=== PATIENT | female | born 1970 | race Two or more races ===

== ENCOUNTER 2021-03-02 09:54 | Emergency (ER) | payer SELFPAY ==
[~2021-03-02] VITALS: Ht 162.6 cm; Wt 70.0 kg
[2021-03-02 10:28] LABS: CLARITY,URINE CLOUDY; COLOR,URINE ORANGE; PROTEIN,URINE 100 mg/dL (NEG-TRACE)
[2021-03-02 10:37] LABS: U PREG PATIENT NEGATIVE (NEG)
[2021-03-02] MEDS ORDERED: ACETAMINOPHEN 500 MG TABLET PO ONE (10:45)
[2021-03-02] MEDS ORDERED: ONDANSETRON PF 4 MG/2 ML VIAL. IVP ONE (10:45)
[2021-03-02] MEDS ORDERED: MORPHINE SULFATE 4 MG/ML INJ. IV/SQ PRN (10:45)
[2021-03-02 10:49] LABS: BACTERIA,URINE MODERATE /HPF (0-FEW); WBC,URINE TNTC /HPF (0-4)
[2021-03-02 10:50] LABS: RBC,URINE FIELD OBSCURED /HPF (0-2)
[2021-03-02] MEDS ORDERED: IV NORMAL SALINE 1000ML BAG 1,000 ML IV SCH (11:00)
--- NOTE | 2021-03-02 11:04 | PHYS DOC ---
Past Medical History Past Medical History: UTI Past Surgical History: No Surgical History Smoking Status: Never Smoker Alcohol Use: None General Adult EDM: Chief Complaint: PAIN ON URINATION HPI: HPI: Patient is a 50 year oldfemale patient presented to the ED today complaining of dysuria, flank pain, nausea, symptoms have been going on since Thursday which is 4 days ago. Patient is also complaining of subjective fevers. Patient denies any hematuria. She states she has tried Pyridium with no relief. Patient is also complaining of 7 out of 10 suprapubic abdominal pain intermitt ently since Thursday. Denies anything specifically relieving the pain but states urinating exacerbates the pain Patient is Malaysian-speaking and interpretation is provided by the son Review of Systems: Review of Systems: Constitutional: Denies fever or chills. [] Eyes: Denies change in visual acuity. [] HENT: Denies nasal congestion or sore throat. [] Respiratory: Denies cough or shortness of breath. [] Cardiovascular: Denies chest pain or edema. [] GI: Reports nausea. Reports suprapubic abdominal pain, denies vomiting, bloody stools or diarrhea. [] : Reports dysuria, flank pain Musculoskeletal: Denies back pain or joint pain. [] Integument: Denies rash. [] Neurologic: Denies headache, focal weakness or sensory changes. [] Psychiatric: Denies depression or anxiety. [] Heart Score: C/O Chest Pain: N/A Risk Factors: Risk Factors: DM, Current or recent (<one month) smoker, HTN, HLP, family history of CAD, obesity. Risk Scores: Score 0 - 3: 2.5% MACE over next 6 weeks - Discharge Home Score 4 - 6: 20.3% MACE over next 6 weeks - Admit for Clinical Observation Score 7 - 10: 72.7% MACE over next 6 weeks - Early Invasive Strategies Current Medications: Current Medications Medications (Trade) Dose Ordered Sig/Clemente Start Time Stop Time Status Last Admin Dose Admin Acetaminophen (Tylenol) 1,000 mg 1X ONCE 03/02/21 10:45 03/02/21 10:46 DC 03/02/21 10:55 1,000 MG Morphine Sulfate (Morphine Sulfate) 4 mg PRN Q15MIN PRN 03/02/21 10:45 03/03/21 10:44 03/02/21 10:55 4 MG Ondansetron HCl (Zofran) 4 mg 1X ONCE 03/02/21 10:45 03/02/21 10:46 DC 03/02/21 10:55 4 MG Sodium Chloride 1,000 ml @ 1,650 mls/hr Q37M 03/02/21 11:00 03/02/21 12:00 03/02/21 10:54 1,650 MLS/HR Allergies: Allergies: Allergies Coded Allergies Type Severity Reaction Last Updated Verified No Known Drug Allergies 03/02/21 No Physical Exam: PE: Constitutional: Well developed, well nourished, no acute distress, non-toxic appearance. [] HENT: Normocephalic, atraumatic, bilateral external ears normal, oropharynx moist, no oral exudates, nose normal. [] Eyes: PERRLA, EOMI, conjunctiva normal, no discharge. [] Neck: Normal range of motion, no tenderness, supple, no stridor. [] Cardiovascular:Heart rate regular rhythm, no murmur [] Lungs & Thorax: Bilateral breath sounds clear to auscultation [] Abdomen: Bowel sounds normal, soft, no tenderness, no masses, no pulsatile masses. [] Skin: Warm, dry, no erythema, no rash. [] Back: No tenderness, mild right CVA tenderness. [] Extremities: No tenderness, no cyanosis, no clubbing, ROM intact, no edema. [] Neurologic: Alert and oriented X 3, normal motor function, normal sensory function, no focal deficits noted. [] Psychologic: Affect normal, judgement normal, mood normal. [] Current Patient Data: Labs: Laboratory Tests Test 03/02/21 10:08 Urine Collection Type Void Urine Color [place] Urine Clarity Cloudy Urine pH 7.0 (<5.0-8.0) Urine Specific [place] 1.015 (1.000-1.030) Urine Protein 100 mg/dL (NEG-TRACE) Urine Glucose (UA) Negative mg/dL (NEG) Urine Ketones (Stick) mg/dL (NEG) Urine Blood (NEG) Urine Nitrite (NEG) Urine Bilirubin (NEG) Urine Urobilinogen Dipstick mg/dL (0.2 mg/dL) Urine Leukocyte Esterase (NEG) Urine RBC Field obscured /HPF (0-2) Urine WBC Tntc /HPF (0-4) Urine Bacteria Moderate /HPF (0-FEW) Urine Test Negative (NEG) Vital Signs: Vital Signs Date Time Temp Pulse Resp B/P (MAP) Pulse Ox O2 Delivery O2 Flow Rate FiO2 03/02/21 10:19 99.6 86 16 147/62 95 Room Air 99.6 EKG: EKG: [] Radiology/Procedures: Radiology/Procedures: [] Course & Med Decision Making: Course & Med Decision Making Pertinent Labs and Imaging studies reviewed. (See chart for details) This is a 50-year-old female patient presented to the ED today complaining of dysuria, suprapubic abdominal pain, nausea, subjective fevers, symptoms since Thursday. Temperature 99.6 on arrival with a heart rate of 88. Patient was given IV fluids Tylenol and pain medicine. CBC with a normal WBC, CMP with no acute fin dings, UA unable to be read because patient took Azo and the color is not readable. We will assume this patient has UTI and sent home with cephalexin for 7 days. Given Rocephin before discharge. Provided return precautions and discharged in stable condition Dragon Disclaimer: Rose Disclaimer: This electronic medical record was generated, in whole or in part, using a voice recognition dictation system. Departure Departure Impression: Primary Impression: Urinary tract infection Qualified Codes: N39.0 - Urinary tract infection, site not specified Disposition: HOME / SELF CARE / HOMELESS Condition: STABLE Referrals: NO PCP (PCP) follow up with your doctor in one week Patient Instructions: Urinary Tract Infection Additional Instructions: You were seen in the emergency room and treated for urinary tract infection. Please take the prescribed antibiotics until completed. Push fluids. Follow-up with your doctor next week. Come back to the ED at any point symptoms worsen Scripts Tramadol Hcl (TRAMADOL HCL) 50 Mg Tablet 50 MG PO Q6HRS PRN for PAIN, #20 TAB Prov: ABNER [facility] C[employer] CONSULTANT 03/02/21 Cephalexin (CEPHALEXIN) 500 Mg Tablet 1 TAB PO BID, #14 TAB Prov: ABNER H[employer] C[employer] CONSULTANT 03/02/21 ABNER [facility] CONSULTANT Mar 02, 2021 11:04
[2021-03-02 11:38] LABS: BASO % 0 % (0-3); EOS # 0.1 x10^3/uL (0.0-0.7); EOS % 1 % (0-3); HEMATOCRIT 40.7 % (36.0-47.0); HEMOGLOBIN 13.9 g/dL (12.0-15.5); LYMPH # 1.6 x10^3/uL (1.0-4.8); LYMPH % 16 % (24-48); MEAN CORPUSCULAR HEMOGLOBIN 30 pg (25-35); MEAN CORPUSCULAR HGB CONC 34 g/dL (31-37); MEAN CORPUSCULAR VOLUME 86 fL (79-100); MONO # 0.7 x10^3/uL (0.0-1.1); MONO % 7 % (0-9); NEUT # 7.3 x10^3/uL (1.8-7.7); NEUT % 75 % (31-73); PLATELET COUNT 174 x10^3/uL (140-400); RED BLOOD COUNT 4.72 x10^6/uL (3.50-5.40); RED CELL DISTRIBUTION WIDTH 13.9 % (11.5-14.5); WHITE BLOOD COUNT 9.7 x10^3/uL (4.0-11.0)
[2021-03-02 11:46] LABS: CALCIUM 8.9 mg/dL (8.5-10.1); CREATININE 0.9 mg/dL (0.6-1.0); GFR 66.5; POTASSIUM 3.7 mmol/L (3.5-5.1)
[2021-03-02 11:52] LABS: ALBUMIN 3.5 g/dL (3.4-5.0); ALBUMIN/GLOBULIN RATIO 0.8 (1.0-1.7); TOTAL BILIRUBIN 1.2 mg/dL (0.2-1.0); TOTAL PROTEIN 7.8 g/dL (6.4-8.2)
[2021-03-02] MEDS ORDERED: CEPH500T PO (12:27)
[2021-03-02] MEDS ORDERED: TRAM50TA PO (12:27)
[2021-03-02 12:36] VITALS: BP 100/54
== END 2021-03-02 13:00 | disposition home or self-care (01) ==
LOC: ER 09:54
DX: N39.0 Urinary tract infection, site not specified (principal)
CPT/HCPCS: 36415; 80053; 81001; 81025; 83605; 85025; 87040; 87086; 96361; 96374; 96375; 99285; J2270; J2405; J7030; 87077; 87186